=== PATIENT | female | born 1950 | race Caucasian/White ===

== ENCOUNTER 2020-04-26 12:20 | Emergency (ER) | payer MEDICARE, SELFPAY ==
--- NOTE | ~2020-04-26 | CT_ITS ---
EXAMINATION: CT abdomen pelvis w con DATE: 04/26/2020 14:24 INDICATION: Vomiting. Left flank pain. TECHNIQUE: Computed tomography (CT) of the abdomen and pelvis was performed with 100 mL Omnipaque 350 intravenous contrast. Automated exposure control and iterative reconstruction technique were employe d. The dose-length product was 1219.73 mGy-cm. COMPARISON: None. FINDINGS: The visualized portions of the lung bases demonstrate mild atelectasis. No pleural effusion . The heart size is normal. There are coronary artery calcifications. No pericardial effusion. There is a small sliding hiatal hernia. The liver, gallbladder, spleen, pancreas, adrenal glands, and right kidney are normal. There is severe atrophy of left kidney. There are cysts in left kidney measuring up to 2.8 cm. There is severe left hydronephrosis with transition point at the ureteropelvic junction . There are small uterine fibroids. There is diverticulosis of the colon without evidence of divertic ulitis. The appendix is normal. There are no dilated loops of bowel. There are no pathologically enla rged lymph nodes. There is no free intraperitoneal fluid. There is severe lumbar spondylosis and mode rate thoracic spondylosis. IMPRESSION: 1. Severe left hydronephrosis. Severe left kidney atrophy. 2. Small sliding hiatal hernia. Reviewed, dictated and finalized at location A.
[2020-04-26 12:28] VITALS: BP 158/99; PULSE 106; RESP 17; TEMP 37.1; O2SAT 98
--- NOTE | 2020-04-26 12:31 | ED.ABDPAIN ---
HPI - Abdominal Pain General Chief Complaint: Nausea/Vomiting/Diarrhea <Gregg Montgomery PA-C - Last Filed: 04/26/20 15:58> Stated Complaint: N/V DARK URINE <KAYLA Stanford Last Filed: 04/26/20 15:58> Time Seen by Provider: 04/26/20 12:24 <Gregg Montgomery PA-C - Last Filed: 04/26/20 15:58> Source: patient <Gregg Montgomery PA-C - Last Filed: 04/26/20 15:58> Mode of arrival: ambulatory <Gregg Montgomery PA-C - Last Filed: 04/26/20 15:58> Limitations: no limitations <KAYLA Stanford Last Filed: 04/26/20 15:58> History of Present Illness HPI narrative: Patient is a 70-year-old female who presents to emergency department for evaluation of nausea vomiting and dark urine that is been present since this week and patient notes on Friday and Friday she had vomiting with some mild left back pain patient notes that her urine is dark and has a foul odor. Patient went to outside hospital yesterday but was not seen. Patient denies other illness or complaints or similar occurrence and has not taken anything for her symptoms and presents per private vehicle <KAYLA Stanford Last Filed: 04/26/20 15:58> Related Data Allergies/Adverse Reactions: Allergies Allergy/AdvReac Type Severity Reaction Status Date / Time No Known Allergies Allergy Verified 04/26/20 12:48 <Gregg Montgomery PA-C - Last Filed: 04/26/20 15:58> Review of Systems Review of Systems: All systems reviewed & are unremarkable except as noted in HPI and below <Gregg Montgomery PA-C - Last Filed: 04/26/20 15:58> PMFSH Past Medical History Medical History: Medical History Obesity <KAYLA Stanford Last Filed: 04/26/20 15:58> Surgical History Surgical History: Surgical History H/O section <KAYLA Stanford Last Filed: 04/26/20 15:58> Family History Family History: Family History (Updated 01/10/17 @ 10:47 by DOCTOR UNKNOWN) Grandparent Family history of liver disease Family history of diabetes mellitus in first degree relative Family history of malignant neoplasm of bone <Gregg Montgomery PA-C - Last Filed: 04/26/20 15:58> Social History Social History: Social History Smoking status: Never smoker Alcohol intake: never Gender identity (if verbalized by the patient): Female <Gregg Montgomery PA-C - Last Filed: 04/26/20 15:58> Exam Narrative: Exam Narrative: GENERAL: Well-appearing, obese, and in no acute distress. HEAD: Normocephalic, atraumatic. EYES: PERRLA and EOMI. ENT: Nares clear, no rhinorrhea or epistaxis. Mucous membranes moist. Oropharynx without tonsillar hypertrophy exudate or other lesions. NECK: Supple. No adenopathy or masses. CHEST: Clear to auscultation. No respiratory distress. No wheezes rales or rhonchi HEART: Regular rate and rhythm. No murmur heard. Normal peripheral pulses. ABDOMEN: Soft, nontender, distended. EXTREMITIES: Normal range of motion. No edema. SKIN: Warm, dry, no rash. NEURO: No focal deficits. Alert and oriented x3. Cranial nerves II through XII grossly intact PSYCH: Normal mood and affect. <Gregg Montgomery PA-C - Last Filed: 04/26/20 15:58> Course Course Emergency Course: Patient in the room at this time in no distress was given 2 L of fluid IV antibiotics is feeling much better at this time patient notes history of atrophic kidney. On the left and is aware of this. Patient aware of discussion with primary care and agrees to follow-up with primary care as instructed <Gregg Montgomery PA-C - Last Filed: 04/26/20 15:58> Consultations Consultation #1: Spoke with urology nurse practitioner who recommends the patient can follow in clinic Spoke with primary care who will also follow the pat
[2020-04-26 12:52] LABS: Basophils Percent Auto 0.3 % (0.2-1.2); Hemoglobin 15.1 g/dL (12.0-15.0); Immature Granulocyte Absolute 0.04 K/mm3 (0.00-0.031); Immature Granulocyte Percent A 0.5 % (0-0.5); Lymphocytes Absolute Auto 1.38 K/mm3 (0.9-3.2); Mean Corpuscular HGB Conc 34.3 g/dl (32-36); Mean Corpuscular Hemoglobin 29.9 pg (26-34); Mean Corpuscular Volume 87.1 fl (80-100); Monocytes Absolute Auto 1.3 K/mm3 (0.1-0.6); Monocytes Percent Auto 15.6 % (2.6-8.5); Neutrophils Absolute Auto 5.8 K/mm3 (1.3-6.7); Neutrophils Percent Auto 67.6 % (45.5-73.1); Platelet Count Result 254 k/mm3 (150-375); Red Blood Count 5.05 M/mm3 (4.2-5.4); Red Cell Distribution Width 12.3 % (11.5-14.5); White Blood Count 8.6 K/mm3 (4.5-10.0)
[2020-04-26] MEDS: FAMOTIDINE 20 MG/2 ML VIAL IV PUSH (12:53)
[2020-04-26] MEDS: SODIUM CHLORIDE 0.9% IV 1,000 ML 999 ML IV CONT ×2 (12:53→13:41)
[2020-04-26 13:02] LABS: Add Urine Microscopic? YES; Appearance Urine Clear (Clear); Bacteria Urine 2+ /hpf; Bilirubin Urine 1+ (Negative); Blood Urine 1+ (Negative); Color Urine Amber (Yellow); Glucose Urine UA Negative (Negative); Ketones Urine 1+ mg/dL (Negative); Leukocyte Esterase Ur 1+ LEU/UL (Negative); Mucus Urine Few /lpf; Nitrate Urine Negative (Negative); Protein Urine 2+ mg/dL (Negative); Specific Grav Ur 1.025 (1.001-1.035); Squamous Epithelial Cell Urine Few /hpf (Few); WBC Urine 51-75 /hpf
[2020-04-26 13:02] LABS: Lactic Acid Reflex 1.1 mmol/L (0.7-2.1)
[2020-04-26 13:11] LABS: Alanine Aminotransferase 40 U/L (4-35); Albumin Level 3.8 g/dL (3.5-5.1); Alkaline Phosphatase 161 U/L (38-126); Aspartate Amino Transferase 43 U/L (14-36); Bilirubin,Total 2.3 mg/dL (0.2-1.3); Blood Urea Nitrogen 33 mg/dL (7-17); Calcium 9.9 mg/dL (8.4-10.2); Carbon Dioxide 26 mmol/L (22-30); Chloride 99 mmol/L (98-107); Estimated CRCL calculation 60 ml/min; Estimated Glomerular Filt Rate > 60; Glucose 126 mg/dL (65-105); Lipase 42 U/L (23-300); Potassium 3.7 mmol/L (3.4-5.0); Sodium 134 mmol/L (137-145)
[2020-04-26 13:46] LABS: CRP 42.9 mg/dL (<1.0)
[2020-04-26 16:07] VITALS: BP 138/81; PULSE 89; RESP 18; O2SAT 99
== END 2020-04-26 16:10 | disposition home or self-care (01) ==
PROVIDERS: Emergency Medicine Emergency Medical Services; Emergency Provider Emergency Medicine; PCP Family Medicine
DX: N39.0 Urinary tract infection, site not specified (principal); E86.0 Dehydration; E66.9 Obesity, unspecified; Z68.35 Body mass index [BMI] 35.0-35.9, adult; N13.30 Unspecified hydronephrosis; N26.1 Atrophy of kidney (terminal); K44.9 Diaphragmatic hernia without obstruction or gangrene
CPT/HCPCS: 36415; 74177; 80053; 81001; 83605; 83690; 85025; 86140; 87040; 87077; 87086; 87088; 87186; 96361; 96365; 96367; 96375; 99284; J0131; J0696; J7030; Q9967